=== PATIENT | female | born 1995 | race Caucasian/White ===

== ENCOUNTER 2018-01-23 16:01 | Emergency (ER) | payer MEDICAID ==
[2018-01-23 16:05] VITALS: BP 115/86
--- NOTE | 2018-01-23 16:39 | ER Document Report ---
HPI - HPI Pain Level: 3 Context: LWBS Past Medical History - Social History Smoking Status: Unknown if Ever Smoked Family History: Reviewed & Not Pertinent Past Surgical History: Reports: Hx Tonsillectomy - Immunizations Immunizations up to date: Yes Hx Diphtheria, Pertussis, Tetanus Vaccination: Yes Vertical Provider Document - CONSTITUTIONAL Notes: LWBS - INFECTION CONTROL TRAVEL OUTSIDE OF THE [place] IN LAST 30 DAYS: No Course - Vital Signs Vital signs: Temp Pulse Resp BP Pulse Ox 98.8 F 114 H 18 115/86 H 95 01/23/18 16:04 01/23/18 16:04 01/23/18 16:04 01/23/18 16:04 01/23/18 16:04 Discharge - Discharge Disposition: LEFT WITHOUT BEING SEEN
== END 2018-01-23 16:43 | disposition left against medical advice (07) ==
LOC: ER 16:01
DX: Z53.21 Procedure and treatment not carried out due to patient leaving prior to being seen by health care provider (principal)

== ENCOUNTER 2019-08-22 16:36 | Emergency (ER) | payer OTHER ==
[2019-08-22 16:43] VITALS: BP 130/76
[2019-08-22] MEDS ORDERED: IBUPROFEN 800 MG TABLET PO ONE (17:03)
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
[2019-08-22] MEDS ORDERED: HYDROCODONE/ACETAMINOPHEN 5-325 MG (6 TAB/ER DISP) PO PRN (17:51)
== END 2019-08-22 18:00 | disposition home or self-care (01) ==
LOC: ER 16:36
DX: S00.83XA Contusion of other part of head, initial encounter (principal); M54.5 Low back pain; R51 Headache; V49.40XA Driver injured in collision with unspecified motor vehicles in traffic accident, initial encounter; Z87.891 Personal history of nicotine dependence; Z79.3 Long term (current) use of hormonal contraceptives
CPT/HCPCS: 70110; 70200; 99283